=== PATIENT | male | born 1925 | race Caucasian/White ===

== ENCOUNTER → 2016-09-05 | Outpatient (CLI) | payer MEDICARE, OTHER ==
[~2016-09-05] MED LIST: ASPIRIN PO; AVAPRO PO; BACTRIM DS TABL1 TAB PO; BENEFIBER1 PKT PO; BENIFIBER PO; CO Q-10200 MG PO; DOXYCYCLINE HYC50 M1 DOB; DOXYCYCLINE HYC50 MG PO; FISH OIL 1,0001 CAP PO; LASIX PO; LIPITOR PO; LOPRESSOR PO; MICRO-K PO; MUCINEX DM ER1 EAC1 PO; PANTOPRAZOLE SO40 MG PO; PLAVIX PO; PREDNISONE10 MG PO; PRILOSEC PO; TOPROL XL PO; VICODIN PO; VITAMIN D-32000 UNI2 PO; ZYRTEC10 M2 PO
--- NOTE | ~2016-09-05 | CT57 ---
[facility] A Service of [facility] RADIOLOGY TEXT RESULTS PATIENT: MEE CALVO LOCATION: [facility] : [birth year] UNIT #: [id number] AGE: [address]: Tej Mcgovern MD SEX: M ORDER DR: [id number] [facility] [address] [place], [place] [address] [id number] O MR#: [id number] #: [id number] NAME: MEE CALVO : 1925 SEX: M STUDY DATE/TIME: 09/05/2016 14:01 UNIT: [facility] ROOM: STUDY DESCRIPTION: CT Chest Wo Cont Attending Physician: Tej Mcgovern M.D. Referring Physician: Tej Mcgovern M.D. Ordering Physician: Tej Mcgovern M.D. Primary Care Physician: Chuck Taylor M.D. MEDICAL IMAGING REPORT This report is preliminary unless electronic signature is present EXAM CT chest without contrast high-resolution protocol INDICATIONS Pulmonary fibrosis. Cough for the past 5-[address] of the chest utilizing high-resolution technique. The CT exam was performed with one or more of the following radiation dose reduction techniques: automatic exposure control, adjustment of mA and/or kV according to patient size, and iterative reconstruction. COMPARISON 09/03/2015 FINDINGS Severe emphysema. Scattered areas of parenchymal scarring including subpleural scarring. There is no honeycombing. No dense consolidation, somewhat nodular area of right lower lobe measures about 9 mm and is not clearly seen on the prior. No pleural fluid. 1.5 cm left thyroid nodule is unchanged. Scattered small mediastinal lymph nodes are stable. Cardiomegaly with coronary artery calcification. No acute findings in the included upper abdomen. No aggressive appearing bone lesion. Mild diffuse bronchiectasis. IMPRESSION 1. Severe emphysema. There is mild scattered areas of interstitial prominence similar to the previous study and favored to represent [facility] A Service of [facility] RADIOLOGY TEXT RESULTS PATIENT: MEE CALVO LOCATION: [facility] : [birth year] UNIT #: [id number] AGE: [address]: Tej Mcgovern MD SEX: M ORDER DR: areas of scarring. There is no honeycombing to suggest a UIP type pattern of interstitial lung disease. 2. 9-mm possible nodule right lower lobe. Recommend attention on a short-interval 3-month followup chest CT. This is not clearly seen on the patient's prior study. 3. Also noted but not mentioned above, there is a 4 mm nodular filling defect in the right main bronchus. It probably represent secretions but can be followed at 3 months as well. Dictated by... Donaldo Lorenzana M.D. THIS IS AN ELECTRONICALLY VERIFIED REPORT Donaldo Lorenzana M.D. at 09/09/2016 7:07 AM TARA/vicky TD: 09/08/2016 11:27 JOB #: [id number] MEDICAL IMAGING REPORT Page 1 of 1 COPY
== END | disposition home or self-care (01) ==
LOC: CCAT 13:41
DX: J44.9 Chronic obstructive pulmonary disease, unspecified (principal); I50.9 Heart failure, unspecified; R91.1 Solitary pulmonary nodule
CPT/HCPCS: 71250

== ENCOUNTER → 2016-12-02 | Outpatient (CLI) | payer MEDICARE, OTHER ==
--- NOTE | ~2016-12-02 | CT57 ---
[facility] A Service of [facility] RADIOLOGY TEXT RESULTS PATIENT: MEE CALVO LOCATION: [facility] : [birth year] UNIT #: [id number] AGE: [address]: Tej Mcgovern MD SEX: M ORDER DR: [id number] [facility] [address] [place] [address] [place], [place] [address] [id number] O MR#: [id number] #: [id number] NAME: MEE CALVO : 1925 SEX: M STUDY DATE/TIME: 12/02/2016 15:30 UNIT: [facility] ROOM: STUDY DESCRIPTION: CT Chest Wo Cont Attending Physician: Tej Mcgovern M.D. Referring Physician: Tej Mcgovern M.D. Ordering Physician: Tej Mcgovern M.D. Primary Care Physician: Chuck Taylor M.D. MEDICAL IMAGING REPORT This report is preliminary unless electronic signature is present EXAM CT chest without contrast. INDICATIONS Pulmonary fibrosis. COPD. Shortness of air for the past 6-[address] of the chest. This CT exam was performed with one or more of the following radiation dose reduction techniques: Automatic exposure control, adjustment of mA and/or kV according to patient size, and iterative reconstruction. COMPARISON 09/05/2016 FINDINGS Redemonstration of severe emphysema. Scattered areas of subpleural interstitial prominence are unchanged and, as discussed previously, may represent interstitial lung disease or interstitial scarring related to the patient's emphysema. There is a new moderate-sized right pleural effusion. A previously described area of nodularity in the right lower lobe is less nodular on this study and has some appearance most in keeping with focal scarring. No new nodules. No dense consolidation. Stable 1.4 cm left thyroid lobe nodule. Scattered mildly prominent and partially calcified mediastinal lymph nodes are unchanged. Coronary artery calcification. Trace amount of perihepatic fluid is new compared with the previous study. Right renal cysts are not significantly changed. No aggressive appearing bone lesion. IMPRESSION [facility] A Service of [facility] RADIOLOGY TEXT RESULTS PATIENT: MEE CALVO LOCATION: [facility] : [birth year] UNIT #: [id number] AGE: [address]: Tej Mcgovern MD SEX: M ORDER DR: 1. A new moderate right pleural effusion compared with 09/05/2016. 2. The previously described nodule in the right lung has appearance most in keeping with focal scarring. No additional followup is required. No new nodules. 3. Other findings are detailed above. Dictated by... Donaldo Lorenzana M.D. THIS IS AN ELECTRONICALLY VERIFIED REPORT Donaldo Lorenzana M.D. at 12/04/2016 7:02 AM TARA/yash TD: 12/03/2016 14:17 JOB #: [id number] MEDICAL IMAGING REPORT Page 1 of 1 COPY
== END | disposition home or self-care (01) ==
LOC: CCAT 14:19
DX: J96.11 Chronic respiratory failure with hypoxia (principal); J44.9 Chronic obstructive pulmonary disease, unspecified; J90 Pleural effusion, not elsewhere classified; R91.1 Solitary pulmonary nodule; E04.1 Nontoxic single thyroid nodule; Q61.02 Congenital multiple renal cysts
CPT/HCPCS: 71250

== ENCOUNTER → 2016-12-02 | Outpatient (CLI) | payer MEDICARE, OTHER | END | disposition home or self-care (01) | LOC: CECH 10:00 | DX: I11.0 Hypertensive heart disease with heart failure (principal); I50.33 Acute on chronic diastolic (congestive) heart failure | CPT/HCPCS: 93306 ==